=== PATIENT | male | born 1950 | race Caucasian/White ===

== ENCOUNTER → 2024-09-03 13:32 | Outpatient (REF) | payer MEDICARE, BC, SELFPAY | LOC: HWRAD 13:32 | PROVIDERS: ATTENDING PHYSICIAN Optometrist; FAMILY PHYSICIAN Internal Medicine | DX: G45.3 Amaurosis fugax (principal); H35.372 Puckering of macula, left eye; H43.813 Vitreous degeneration, bilateral; H04.123 Dry eye syndrome of bilateral lacrimal glands | CPT/HCPCS: 93880 ==